=== PATIENT | female | born 1995 | race Caucasian/White ===

== ENCOUNTER 2016-12-09 16:48 | Emergency (ER) | payer OTHER ==
[~2016-12-09] VITALS: Ht 162.6 cm; Wt 68.2 kg
[2016-12-09] MEDS ORDERED: CefTRIAXone SODIUM 1 GM/VIAL IM ONE (18:15)
[2016-12-09] MEDS ORDERED: LIDOCAINE HCL/PF 1% 2 ML VIAL IM ONE (18:15)
[2016-12-09 18:36] VITALS: BP 114/63
== END 2016-12-09 19:13 | disposition home or self-care (01) ==
LOC: EMS 16:50
DX: H01.001 Unspecified blepharitis right upper eyelid (principal); H00.031 Abscess of right upper eyelid
CPT/HCPCS: 96372; 99283; J0696; J3490

== ENCOUNTER 2018-06-15 16:36 | Emergency (ER) | payer OTHER ==
[~2018-06-15] VITALS: Ht 157.5 cm; Wt 54.1 kg
[2018-06-15] MEDS ORDERED: FOSF3PAC PO (17:11)
[2018-06-15] MEDS ORDERED: PRED10 GT (17:16)
[2018-06-15] MEDS ORDERED: MULT-1203 GT (17:16)
[2018-06-15] MEDS ORDERED: HYDR200T4 GT (17:16)
[2018-06-15] MEDS ORDERED: AZAT50TA35 GT (17:16)
[2018-06-15] MEDS: KETAMINE HCL 50 MG/ML 10 ML VIAL IM ONE (19:17)
[2018-06-15 19:50] LABS: BASOPHILS % (AUTO) 0.4 % (0.0-2.0); EOSINOPHILS % (AUTO) 0 % (1.0-6.0); HEMATOCRIT 38.1 % (36-46); HEMOGLOBIN 12.6 g/dL (12.0-16.0); LYMPHOCYTES # (AUTO) 0.7 K/uL (1.0-4.8); LYMPHOCYTES % (AUTO) 20.6 % (22.0-44.0); MEAN CORPUSCULAR HEMOGLOBIN 30.8 pg (26.0-34.0); MEAN CORPUSCULAR HGB CONC 33.1 G/dL (31.0-37.0); MEAN CORPUSCULAR VOLUME 93 fL (80-100); MONOCYTES # (AUTO) 0.4 K/uL (0.1-1.0); MONOCYTES % (AUTO) 12.2 % (2.0-9.0); NEUTROPHILS # (AUTO) 2.2 K/uL (1.8-7.7); NEUTROPHILS % (AUTO) 66.8 % (40.0-70.0); PLATELET COUNT (AUTO) 209 K/uL (150-450); RED BLOOD CELL COUNT(AUTO) 4.09 MIL/uL (4.00-5.20); RED CELL DISTRIBUTION WIDTH 13.9 % (11.5-14.5)
[2018-06-15 20:02] LABS: APPEARANCE,URINE CLOUDY (CLEAR); BILIRUBIN,URINE NEGATIVE (NEGATIVE); GLUCOSE, URINE (UA) NEGATIVE (NEGATIVE); KETONES,URINE NEGATIVE (NEGATIVE); LEUKOCYTE ESTERASE ,URINE NEGATIVE (NEGATIVE); NITRATE,URINE NEGATIVE (NEGATIVE); OCCULT BLOOD,URINE NEGATIVE (NEGATIVE); PH,URINE 6.5 (5.0-8.0); PROTEIN,URINE NEGATIVE (NEGATIVE)
[2018-06-15 20:05] LABS: ANION GAP 8 mmol/L (8-16); CALCIUM, TOTAL 9.1 mg/dL (8.8-10.5); CARBON DIOXIDE 26 mmol/L (22-29); CHLORIDE 104 mmol/L (98-107); CREATININE 0.38 mg/dL (0.60-1.30); GLOMERULAR FILTR. RATE CALC > 60 mL/min (>60); GLUCOSE,RANDOM 81 mg/dL (70-110); POTASSIUM 4.4 mmol/L (3.5-5.1); SODIUM SERUM 138 mmol/L (136-145); UREA NITROGEN, BLOOD 9 mg/dL (7-18)
[2018-06-15 20:12] LABS: ALANINE AMINOTRANSFERASE 75 U/L (12-78); ALBUMIN 3.3 g/dL (3.4-5.0); ALKALINE PHOSPHATASE 102 U/L (46-116); ASPARTATE AMINOTRANSFERASE 47 U/L (15-37); BILIRUBIN,TOTAL 0.2 mg/dL (0.1-1.0); LIPASE 69 U/L (73-393); TOTAL PROTEIN, SERUM 9.4 g/dL (6.4-8.2)
[2018-06-15 20:17] LABS: HCG,QUANTITATIVE < 1 mIU/mL (0-6)
[2018-06-15] MEDS: MAGNESIUM CITRATE 300 ML ORAL SOLUTION PO ONE (21:26)
[2018-06-15 21:27] VITALS: BP 109/72
== END 2018-06-15 21:30 | disposition home or self-care (01) ==
LOC: EMS 16:38
DX: K59.00 Constipation, unspecified (principal); R33.9 Retention of urine, unspecified
CPT/HCPCS: 36415; 51701; 74176; 80053; 81003; 83690; 84702; 85025; 99152; 99285; G0238; J3490

== ENCOUNTER 2018-06-28 13:25 | Emergency (ER) | payer OTHER ==
[~2018-06-28] VITALS: Ht 157.5 cm; Wt 54.0 kg
[~2018-06-28 13:25] MED LIST: AZAT50TA35 GT; FOSF3PAC PO; HYDR200T4 GT; MULT-1203 GT; PRED10 GT
[2018-06-28] MEDS ORDERED: KETAMINE HCL 50 MG/ML 10 ML VIAL IM ONE ×2 (14:30→14:45)
[2018-06-28 16:55] LABS: BASOPHILS % (AUTO) 0.2 % (0.0-2.0); EOSINOPHILS % (AUTO) 0.1 % (1.0-6.0); HEMATOCRIT 38.4 % (36-46); HEMOGLOBIN 12.8 g/dL (12.0-16.0); LYMPHOCYTES # (AUTO) 0.3 K/uL (1.0-4.8); LYMPHOCYTES % (AUTO) 12.7 % (22.0-44.0); MEAN CORPUSCULAR HGB CONC 33.3 G/dL (31.0-37.0); MEAN CORPUSCULAR VOLUME 93 fL (80-100); MONOCYTES # (AUTO) 0.2 K/uL (0.1-1.0); MONOCYTES % (AUTO) 8.2 % (2.0-9.0); NEUTROPHILS # (AUTO) 2.2 K/uL (1.8-7.7); NEUTROPHILS % (AUTO) 78.8 % (40.0-70.0); PLATELET COUNT (AUTO) 159 K/uL (150-450); RED BLOOD CELL COUNT(AUTO) 4.13 MIL/uL (4.00-5.20)
[2018-06-28 17:03] LABS: ANION GAP 4 mmol/L (8-16); CALCIUM, TOTAL 8.6 mg/dL (8.8-10.5); CARBON DIOXIDE 29 mmol/L (22-29); CHLORIDE 105 mmol/L (98-107); GLOMERULAR FILTR. RATE CALC > 60 mL/min (>60); GLUCOSE,RANDOM 86 mg/dL (70-110); POTASSIUM 4.8 mmol/L (3.5-5.1); SODIUM SERUM 138 mmol/L (136-145); UREA NITROGEN, BLOOD 10 mg/dL (7-18)
[2018-06-28 17:15] LABS: ALANINE AMINOTRANSFERASE 446 U/L (12-78); ALBUMIN 3.3 g/dL (3.4-5.0); ALKALINE PHOSPHATASE 129 U/L (46-116); ASPARTATE AMINOTRANSFERASE 266 U/L (15-37); BILIRUBIN,TOTAL 0.2 mg/dL (0.1-1.0); HCG,QUANTITATIVE < 1 mIU/mL (0-6); LIPASE 90 U/L (73-393)
[2018-06-28 17:27] LABS: APPEARANCE,URINE CLEAR (CLEAR); BILIRUBIN,URINE NEGATIVE (NEGATIVE); GLUCOSE, URINE (UA) NEGATIVE (NEGATIVE); KETONES,URINE NEGATIVE (NEGATIVE); LEUKOCYTE ESTERASE ,URINE NEGATIVE (NEGATIVE); NITRATE,URINE NEGATIVE (NEGATIVE); OCCULT BLOOD,URINE NEGATIVE (NEGATIVE); PH,URINE 7.5 (5.0-8.0); PROTEIN,URINE NEGATIVE (NEGATIVE)
[2018-06-28 17:34] LABS: BACTERIA,URINE None Seen /HPF (None Seen); RBC,URINE 0-2 /HPF (0-2); SQUAMOUS EPITHELIAL CELL,UR Few /LPF (None Seen); WBC,URINE 0-2 /HPF (0-5)
[2018-06-28] MEDS ORDERED: SODIUM PHOS/SODIUM BIPHOS 133 ML ENEMA PR ONE (18:00)
[2018-06-28 19:19] VITALS: BP 104/68
== END 2018-06-28 19:26 | disposition home or self-care (01) ==
LOC: EMS 13:28
DX: K59.00 Constipation, unspecified (principal); R74.0 Nonspecific elevation of levels of transaminase and lactic acid dehydrogenase [LDH]
CPT/HCPCS: 36415; 74176; 80053; 81001; 83690; 84702; 85025; 93005; 99152; 99153; 99285; J3490; 51702